=== PATIENT | female | born 1935 | race Caucasian/White ===

== ENCOUNTER → 2017-04-04 | Emergency (ER) | payer MEDICARE, OTHER ==
[~2017-04-04] VITALS: Ht 160 cm; Wt 65.8 kg
[~2017-04-04] MED LIST: IBUPROFEN600 MG ORAL
[2017-04-04 19:06] VITALS: BP 153/87
--- NOTE | 2017-04-05 08:45 | Diagnostic Imaging Report ---
Indication: Pain Technique: XRAY Wrist Complete L Comparison: None Findings: The bones are diffusely demineralized. There is an acute, mildly angulated, mildly comminuted and impacted fracture of the distal radius with extension to the articular surface. No additional fracture is identified. There is mild overlying soft tissue swelling. No radiopaque foreign body is seen. Impression: Distal radial fracture as above. Osteopenia. This corresponds with the preliminary interpretation by the treating ER physician.
--- NOTE | 2017-04-06 08:52 | Emergency Room Report ---
History of Present Illness General Chief Complaint: Upper Extremity Injury Source: Patient Present Illness HPI Patient present with friend for reports of left wrist pain patient had a mechanical trip and fall just prior to arrival reports that the sidewalk appear to be uneven Pain is 5/10 localized to the wrist Patient denies any other injury to the elbow denies any head injury denies any loss of consciousness Pain is worse with touch better with elevation Allergies: Coded Allergies: No Known Allergies (Unverified , 04/04/17) Patient History Past Medical History: see triage record Pertinent Family History: none Reviewed Nursing Documentation: PMH: Agreed, PSxH: Agreed Nursing Documentation-PMH Past Medical History: No Stated History Review of Systems All Other Systems: negative except mentioned in HPI Physical Exam Vital Signs Date Time Temp Pulse Resp B/P (MAP) Pulse Ox O2 Delivery O2 Flow Rate FiO2 04/04/17 18:13 97.5 88 20 153/87 99 Room Air Sp02 EP Interpretation: reviewed, normal General Appearance: well appearing, no apparent distress Head: normocephalic, atraumatic Eyes: bilateral eye PERRL, bilateral eye EOMI ENT: hearing grossly normal, normal pharynx Neck: full range of motion, supple Respiratory: chest non-tender, lungs clear Cardiovascular #1: regular rate, rhythm, no edema Gastrointestinal: non tender Musculoskeletal: swelling - Swelling and obvious anomaly to the left distal wrist, neurovascularly however intact no obvious open wounds Neurologic: alert, oriented x3, responsive Skin: other - swelling as above Lymphatic: no adenopathy Procedures Splinting Splinting : Consent: Verbal Location: left wrist Pre-Made Type: velcro Splint: volar Pre-Proc Neuro Vasc Exam: normal Post-Proc Neuro Vasc Exam: normal Patient Tolerated: Well Complications: None Medical Decision Making Diagnostic Impression: Primary Impression: wrist fracture ER Course Imaging study reveals acute fracture of the distal radius Is very minimal angulation, patient remains neurologically/neurovascularly intact Splint is applied patient will require close outpatient orthopedic followup for further intervention Other X-Ray Diagnostic Results Other X-Ray Diagnostic Results : X-Ray ordered: left wrist # of Views/Limited Vs Complete: 3 View Indication: Pain EP Interpretation: Yes Interpretation: other - Acute distal radial fracture, mild compression mild angulation, positive soft tissue swelling, Impression: Other - acute distal fracture radius Electronically Signed by: Ali Jamehdor, DO Last Vital Signs Date Time Temp Pulse Resp B/P (MAP) Pulse Ox O2 Delivery O2 Flow Rate FiO2 04/04/17 19:06 97.5 20 153/87 99 Room Air 04/04/17 18:13 88 Status: improved Disposition: HOME, SELF-CARE Condition: Improved Scripts Ibuprofen* (MOTRIN*) 600 Mg Tablet 600 MG ORAL Q8H Y for For Pain, #20 TAB 0 Refills Prov: RACQUEL LOPEZ D.O. 04/04/17 Referrals: [facility],REFERRING (PCP) Patient Instructions: Wrist Fracture, [id number] Additional Instructions: Patient is provided with the discharge instructions notified to follow up with primary doctor in the next 2-3 days otherwise return to the er with any worsening symptoms. Please note that this report is being documented using [employer] technology. This can lead to erroneous entry secondary to incorrect interpretation by the dictating instrument. RACQUEL LOPEZ D.O. Apr 06, 2017 08:52
== END | disposition home or self-care (01) ==
LOC: EMR 18:12
DX: S52.502A Unspecified fracture of the lower end of left radius, initial encounter for closed fracture (principal); W01.0XXA Fall on same level from slipping, tripping and stumbling without subsequent striking against object, initial encounter; Y93.9 Activity, unspecified; Y92.480 Sidewalk as the place of occurrence of the external cause; Y99.9 Unspecified external cause status
CPT/HCPCS: 99283